=== PATIENT | female | born 1965 | race Caucasian/White ===

== ENCOUNTER 2019-10-21 05:19 | Day surgery (SDC) | payer BC ==
[2019-10-14 16:09] LABS: BASOPHILS % (AUTO) 0.4 % (0-1); EOSINOPHILS # (AUTO) 0.3 X10'3 (0-0.9); EOSINOPHILS % (AUTO) 3.3 % (0-6); LYMPHOCYTES # (AUTO) 2.6 X10'3 (1.1-4.8); LYMPHOCYTES % (AUTO) 25.7 % (21-51); MEAN CORPUSCULAR HGB CONC 33.5 g/dL (33.0-36.5); MEAN CORPUSCULAR VOLUME 92.6 FL (78-98); MEAN PLATELET VOLUME 9.2 FL (7.4-10.4); MONOCYTES # (AUTO) 0.7 X10'3 (0-0.9); MONOCYTES % (AUTO) 6.9 % (2-12); NEUTROPHILS # (AUTO) 6.3 X10'3 (1.8-7.7); NEUTROPHILS % (AUTO) 63.7 % (42-75); PRE OP HEMATOCRIT 39.3 % (35.0-45.0); PRE OP HEMOGLOBIN 13.2 g/dL (12.0-16.0); PRE OP PLATELET COUNT 340 X10'3 (140-440); RED BLOOD COUNT 4.25 X10'6 (4.20-5.60); RED CELL DISTRIBUTION WIDTH 13.6 % (11.5-14.5)
[2019-10-14 16:26] LABS: ALBUMIN/GLOBULIN RATIO 1.1 (1.1-1.5); ALKALINE PHOSPHATASE 66 IU/L (46-116); BLOOD UREA NITROGEN 9 MG/DL (7-18); CALCIUM 9.3 MG/DL (8.5-10.1); CHLORIDE 103 MMOL/L (99-107); PRE OP ALT 22 U/L (30-65); PRE OP ANION GAP 7 (8-16); PRE OP AST 25 U/L (10-37); PRE OP BILIRUB, TOTAL 0.4 MG/DL (0.0-1.0); PRE OP GLUCOSE 91 MG/DL (70-104); PRE OP SODIUM 141 MMOL/L (135-145); TOTAL CARBON DIOXIDE 31.2 MMOL/L (24-32); TOTAL PROTEIN 7.7 G/DL (6.4-8.2); eGFR 65 ML/MIN
[2019-10-14 16:29] LABS: PRE OP POTASSIUM 3.2 MMOL/L (3.4-5.1)
[2019-10-21] VITALS (11 sets, daily range): BP systolic 122–142; BP diastolic 61–92
[~2019-10-21] VITALS: Ht 162.6 cm; Wt 92.0 kg
[~2019-10-21 05:19] MED LIST: CHLO25TA10 PO; LORA-660 PO; ringers solution, lacted 1,000 ML IV SCH
[2019-10-21] MEDS ORDERED: cefazolin/dext.iso 2gm/50ml 50 ML IV ONE (05:30)
[2019-10-21] MEDS ORDERED: famotidine 20mg tablet PO ONE (05:30)
[2019-10-21] MEDS ORDERED: INDOCYANINE GREEN 25 MG/10 ML VIAL IV ONE (05:30)
[2019-10-21] MEDS ORDERED: LIDOcaine 1% (10mg/ml) 2ml vial ONE (06:13)
[2019-10-21] MEDS ORDERED: LIDOcaine 1% 30ml preserv. free vial ONE (06:38)
[2019-10-21] MEDS ORDERED: BUPIVAcaine/PF 2.5 mg/ml (0.25%) 30ml vial ONE (06:38)
[2019-10-21] MEDS ORDERED: ringers solution, lacted 1,000 ML IV SCH (07:14)
[2019-10-21] MEDS ORDERED: morphine 2 MG/ML inj. syringe IV PRN (07:15)
[2019-10-21] MEDS ORDERED: fentaNYL/PF 50MCG/1 ML 2ML syringe IV PRN ×2 (07:15)
[2019-10-21] MEDS ORDERED: ondansetron/PF 4mg/2ml inj IV PRN (07:15)
[2019-10-21] MEDS ORDERED: labetalol 20mg/4ml (5mg/ml) syringe IV PRN (07:15)
[2019-10-21] MEDS ORDERED: morphine 4 MG/ML inj SYRINge IV PRN (07:15)
[2019-10-21] MEDS ORDERED: hydrALAZINE 20mg/ml inj. IV PRN (07:15)
[2019-10-21] MEDS ORDERED: fentaNYL/PF 50MCG/1 ML 2ML syringe ONE (07:20)
[2019-10-21] MEDS ORDERED: midazolam 2 mg/2 ml injection ONE (07:20)
[2019-10-21] MEDS ORDERED: dexamethasone sod phosphate 4mg/ml inj. ONE (07:21)
[2019-10-21] MEDS ORDERED: ondansetron/PF 4mg/2ml inj ONE (07:21)
[2019-10-21] MEDS ORDERED: rocuronium 10mg/ml inj IV ONE (07:21)
[2019-10-21] MEDS ORDERED: neostigmine methylsulfate 1 MG/ML 10ml vial ONE (07:21)
[2019-10-21] MEDS ORDERED: glycopyrrolate 0.2mg/ml inj ONE (07:21)
[2019-10-21] MEDS ORDERED: propofol inj 20 ML IV ONE (07:21)
[2019-10-21] MEDS ORDERED: LIDOcaine 2% (20mg/ml) 5ml vial ONE (07:21)
[2019-10-21] MEDS ORDERED: sevoflurane 250ml liquid IH ONE (07:36)
--- NOTE | 2019-10-21 08:53 | NUR ---
Received from OR via BED, accompanied by Anesthesiologist --- and report given by Anesthesiolgist. PATIENT A&OX4, DENIES PAIN, V/S WNL, NEUROVASCULAR CHECKS INTACT, G PIV UE, SCD ON,
[2019-10-21] MEDS ORDERED: HYDROcodone/acetaminophen 5mg/325mg tablet PO PRN (09:10)
--- NOTE | 2019-10-21 10:18 | NUR ---
I HAVE REVIEWED D/C INSTRUCTIONS WITH PATIENT AND FAMILY AND THEY HAVE VERBALIZED UNDERSTANDING. PATIENT D/C HOME WITH ALL BELONGINGS AND FAMILY GAVE TRANSPORT HOME.
== END 2019-10-21 10:23 | disposition home or self-care (01) ==
LOC: PAS 05:19
PROVIDERS: ATTEND Surgery
DX: K80.10 Calculus of gallbladder with chronic cholecystitis without obstruction (principal); I10 Essential (primary) hypertension; E66.9 Obesity, unspecified; Z68.36 Body mass index [BMI] 36.0-36.9, adult; F17.210 Nicotine dependence, cigarettes, uncomplicated; Z98.890 Other specified postprocedural states; Z79.899 Other long term (current) drug therapy; Z91.09 Other allergy status, other than to drugs and biological substances; Z72.89 Other problems related to lifestyle; Z11.59 Encounter for screening for other viral diseases
CPT/HCPCS: 36415; 47563; 80053; 82948; 85025; 87635; 93005; J1100; J2001; J2250; J2270; J2405; J2704; J2710; J3010; J3490; J7120; S2900; A4215; A4618; A7000

== ENCOUNTER 2020-02-29 17:30 | Emergency (ER) | payer BC ==
[~2020-02-29] VITALS: Ht 162.6 cm; Wt 90.0 kg
[~2020-02-29 17:30] MED LIST changes: -ringers solution, lacted 1,000 ML IV SCH
[2020-02-29] MEDS ORDERED: LIDOcaine 1% 30ml preserv. free vial IJ ONE (18:25)
[2020-02-29] MEDS ORDERED: morphine 4 MG/ML inj SYRINge IM ONE (18:35)
[2020-02-29] MEDS ORDERED: HYDR-3965 PO (19:50)
[2020-02-29 20:18] VITALS: BP 122/101
== END 2020-02-29 21:19 | disposition home or self-care (01) ==
LOC: ER 17:31
DX: S52.592A Other fractures of lower end of left radius, initial encounter for closed fracture (principal); M25.532 Pain in left wrist; Z90.49 Acquired absence of other specified parts of digestive tract; Z79.899 Other long term (current) drug therapy; W18.39XA Other fall on same level, initial encounter; Y93.89 Activity, other specified; Y92.89 Other specified places as the place of occurrence of the external cause; Y99.8 Other external cause status
CPT/HCPCS: 25605; 73100; 73110; 96372; 99284; J2270; 99285

== ENCOUNTER 2020-03-22 06:33 | Day surgery (SDC) | payer BC ==
[~2020-03-22] VITALS: Ht 162.6 cm; Wt 87.5 kg
[2020-03-22] VITALS (11 sets, daily range): BP systolic 109–125; BP diastolic 65–86
[~2020-03-22 06:33] MED LIST changes: +cefazolin/dext.iso 2gm/50ml 50 ML IV ONE; +famotidine 20mg tablet PO ONE; +ringers solution, lacted 1,000 ML IV SCH
[2020-03-22] MEDS ORDERED: LIDOcaine 1% (10mg/ml) 2ml vial ONE (06:55)
[2020-03-22 07:57] LABS: BASOPHILS # (AUTO) 0.1 X10'3 (0-0.2); BASOPHILS % (AUTO) 0.6 % (0-1); EOSINOPHILS # (AUTO) 0.6 X10'3 (0-0.9); LYMPHOCYTES # (AUTO) 2.2 X10'3 (1.1-4.8); LYMPHOCYTES % (AUTO) 21.4 % (21-51); MEAN CORPUSCULAR HEMOGLOBIN 31.9 PG (27.0-31.0); MEAN CORPUSCULAR HGB CONC 34.4 g/dL (33.0-36.5); MEAN CORPUSCULAR VOLUME 92.9 FL (78-98); MEAN PLATELET VOLUME 9.3 FL (7.4-10.4); MONOCYTES # (AUTO) 0.6 X10'3 (0-0.9); MONOCYTES % (AUTO) 5.8 % (2-12); NEUTROPHILS # (AUTO) 6.9 X10'3 (1.8-7.7); NEUTROPHILS % (AUTO) 66.2 % (42-75); PRE OP HEMATOCRIT 35.8 % (35.0-45.0); PRE OP HEMOGLOBIN 12.3 g/dL (12.0-16.0); PRE OP PLATELET COUNT 372 X10'3 (140-440); RED BLOOD COUNT 3.86 X10'6 (4.20-5.60); RED CELL DISTRIBUTION WIDTH 12.7 % (11.5-14.5)
[2020-03-22 08:01] LABS: ALBUMIN 3.9 G/DL (3.4-5.0); ALBUMIN/GLOBULIN RATIO 1.1 (1.1-1.5); ALKALINE PHOSPHATASE 62 IU/L (46-116); BLOOD UREA NITROGEN 9 MG/DL (7-18); BUN/CREATININE RATIO 10.6 (6.6-38.0); CALCIUM 9.7 MG/DL (8.5-10.1); CHLORIDE 107 MMOL/L (99-107); CREATININE 0.85 MG/DL (0.40-0.90); PRE OP ALT 29 U/L (30-65); PRE OP ANION GAP 10 (8-16); PRE OP AST 16 U/L (10-37); PRE OP BILIRUB, TOTAL 0.5 MG/DL (0.0-1.0); PRE OP GLUCOSE 103 MG/DL (70-104); PRE OP SODIUM 145 MMOL/L (135-145); TOTAL CARBON DIOXIDE 28.2 MMOL/L (24-32); TOTAL PROTEIN 7.5 G/DL (6.4-8.2); eGFR 69 ML/MIN
[2020-03-22 08:17] LABS: PRE OP POTASSIUM 3.2 MMOL/L (3.4-5.1)
[2020-03-22] MEDS ORDERED: cloNIDine hcl/PF 100mcg/ml inj ONE (08:23)
[2020-03-22] MEDS ORDERED: fentaNYL/PF 50MCG/1 ML 2ML syringe ONE (08:25)
[2020-03-22] MEDS ORDERED: MIDAZolam 5mg/5ml vial ONE (08:25)
[2020-03-22] MEDS ORDERED: ROPIVAcaine 0.5% (5mg/ml) 30ml vial ONE (08:26)
[2020-03-22] MEDS ORDERED: ePHEDrine 50MG/ML INJ. ONE (08:29)
[2020-03-22] MEDS ORDERED: sevoflurane 250ml liquid IH ONE (08:29)
[2020-03-22] MEDS ORDERED: acetaminophen 1000 MG/100ml vial IV ONE (08:29)
[2020-03-22] MEDS ORDERED: morphine 2 MG/ML inj. syringe IV PRN (09:40)
[2020-03-22] MEDS ORDERED: ondansetron/PF 4mg/2ml inj IV PRN (09:40)
[2020-03-22] MEDS ORDERED: morphine 4 MG/ML inj SYRINge IV PRN (09:40)
[2020-03-22] MEDS ORDERED: ringers solution, lacted 1,000 ML IV SCH (09:40)
[2020-03-22] MEDS ORDERED: proCHLORperazine 10 MG/2 ml inj IV PRN (09:40)
[2020-03-22] MEDS ORDERED: meperidine/PF 25mg/ml syringe IV PRN ×3 (09:40)
[2020-03-22] MEDS ORDERED: ondansetron/PF 4mg/2ml inj ONE (10:08)
[2020-03-22] MEDS ORDERED: dexamethasone sod phosphate 4mg/ml inj. ONE (10:08)
[2020-03-22] MEDS ORDERED: propofol inj 20 ML IV ONE (10:08)
[2020-03-22] MEDS ORDERED: LIDOcaine 1%/PF 5ML 10 MG/ML VIAL ONE (10:08)
--- NOTE | 2020-03-22 10:12 | NUR ---
RECEIVED FROM OR VIA [facility] ACCOMPANIED BY ANESTHESIOLOGIST DR JUNG, REPORT GIVEN. PT DROWSY BUT AWAKENS EASILY, DENIES PAIN AT THIS TIME. 20 GAUGE PIV R WRIST PATENT AND RUNNING LR AT 100 ML/HR. SPLINT WITH ANDRES WRAP LUE CDI WITH PALPABLE PPULSES, BRISK CAP REFILL, SKIN PINK AND WARM, VSS, UNABLE TO WIGGLE FINGERS L HAND DUE TO BLOCK. RESTING COMFORTABLY.
--- NOTE | 2020-03-22 11:32 | NUR ---
PT AWAKE AND ALERT, DENIES PAIN AT THIS TIME. 20 GAUGE PIV R WRIST DC/D CATH TIP INTACT. SPLINT WITH ANDRES WRAP LUE CDI WITH PALPABLE PPULSES, BRISK CAP REFILL, SKIN PINK AND WARM, VSS, UNABLE TO WIGGLE FINGERS L HAND DUE TO BLOCK. TOLERATING FLUIDS, ABLE TO DRESS SELF, VOID, AND AMBULATE. DISCHARGE INSTRUCTIONS GIVEN AND PT VERBALIZED UNDERSTANDING. TRANSPORTED VIA WHEELCHAIR TO FRIEND IN PRIVATE VEHICLE TO HOME.
== END 2020-03-22 11:32 | disposition home or self-care (01) ==
LOC: PAS 06:33
PROVIDERS: ATTEND Orthopaedic Surgery
DX: S52.572A Other intraarticular fracture of lower end of left radius, initial encounter for closed fracture (principal); F17.210 Nicotine dependence, cigarettes, uncomplicated; I10 Essential (primary) hypertension; M25.532 Pain in left wrist; G89.18 Other acute postprocedural pain; E66.9 Obesity, unspecified; Z68.33 Body mass index [BMI] 33.0-33.9, adult; Z79.899 Other long term (current) drug therapy; Z90.49 Acquired absence of other specified parts of digestive tract; Z98.890 Other specified postprocedural states; W19.XXXA Unspecified fall, initial encounter; Y93.89 Activity, other specified; Y92.89 Other specified places as the place of occurrence of the external cause; Y99.8 Other external cause status
CPT/HCPCS: 25608; 36415; 64417; 76942; 80053; 85025; A6222; C1713; J0735; J1100; J2001; J2250; J2405; J2704; J3010; A4215; A4618; A6449; A7000; J0131; J2795; J7120